=== PATIENT | male | born 1965 | race Caucasian/White ===

== ENCOUNTER 2017-03-21 13:22 | Emergency (ER) | payer SELFPAY ==
[~2017-03-21] VITALS: Ht 188 cm; Wt 104.3 kg
[2017-03-21 13:25] VITALS: BP 140/85
[2017-03-21] MEDS ORDERED: HYDROcodone-ACET 7.5/325MG TAB PO ONE (14:00)
== END 2017-03-21 15:37 | disposition home or self-care (01) ==
LOC: ER 13:22 → EDBD 13:22 → ER 15:37
DX: S29.012A Strain of muscle and tendon of back wall of thorax, initial encounter (principal); S20.211A Contusion of right front wall of thorax, initial encounter; V43.52XA Car driver injured in collision with other type car in traffic accident, initial encounter; Y93.89 Activity, other specified; Y92.89 Other specified places as the place of occurrence of the external cause; Y99.8 Other external cause status
CPT/HCPCS: 71020; 72070; 93005